=== PATIENT | male | born 1970 | race Caucasian/White ===

== ENCOUNTER 2020-03-29 14:30 | Emergency (ER) | payer OTHER ==
[2020-03-29] MEDS ORDERED: TETANUS/DIPHTHERIA/PERTUSSIS 0.5 ML SYRINGE IM ONE (14:56)
[2020-03-29] MEDS ORDERED: BUFFERED LIDOCAINE 10 ML SYRINGE SUBQ STA (14:56)
--- NOTE | 2020-03-29 15:59 | ED Physician Documentation ---
PD HPI LOWER EXT INJURY - Stated complaint Stated Complaint: L LEG LAC - Chief complaint Chief Complaint: Laceration - History obtained from History obtained from: Patient (He cut his left leg with a fiberglass grinder blade at work just prior to arrival. Tetanus is unknown.) - History of Present Illness PD HPI LOW EXT INJURY LOCATION: Left (He cut his left leg with a fiberglass grinder blade at work just prior to arrival. Tetanus is unknown.) Review of Systems Constitutional: reports: Reviewed and negative Ears: reports: Reviewed and negative Throat: reports: Reviewed and negative Cardiac: reports: Reviewed and negative PD PAST MEDICAL HISTORY - Allergies Allergies/Adverse Reactions: Allergies Allergy/AdvReac Type Severity Reaction Status Date / Time No Known Drug Allergies Allergy Verified 03/29/20 14:42 PD ED PE NORMAL - Vitals Vital signs reviewed: Yes - General General: Alert and oriented X 3, No acute distress - Extremities Extremities: Other (He is a 3 cm gaping clean laceration on the anterior left thigh just into subcutaneous fat) - Neuro Neuro: Alert and oriented X 3, Normal speech Results - Vitals Vitals: Vital Signs - 24 hr 03/29/20 14:42 Temperature 36.7 C Heart Rate 80 Respiratory 16 Rate Blood Pressure 140/85 H O2 Saturation 96 Oxygen O2 Source Room air Procedures - Laceration (location) LLE Length in cm: 3 Wound type: Linear, Superficial, Into subcut fat Neurovascular status: Sensory intact, Motor intact, Vascular intact Anesthesia: Lidocaine 1%, With bicarb Wound Preparation: Irrigated copiously NS Skin layer closure: Nylon, Interrupted, Size #-0 - enter number (4-0), Sutures - enter # (7) Other: Tetanus booster given Complexity: Simple Departure - Departure Disposition: 01 Home, Self Care Clinical Impression: Laceration Condition: Good Record reviewed to determine appropriate education?: Yes Instructions: ED Laceration All Comments: Come back for any signs of infection which would include: Redness, swelling, drainage, increased pain, or fevers. You can wash it soap and water. Keep it covered and moist with bacitracin ointment which is available over the counter; avoid neosporin. Follow-up with your physician in about 14 days for suture removal.
[2020-03-29 16:33] VITALS: BP 132/74
== END 2020-03-29 16:33 | disposition home or self-care (01) ==
LOC: ED 14:30
DX: S71.112A Laceration without foreign body, left thigh, initial encounter (principal); W31.1XXA Contact with metalworking machines, initial encounter; Y99.0 Civilian activity done for income or pay
CPT/HCPCS: 1040M; 12002; 90471; 90715; 99283